=== PATIENT | female | born 1990 | race American Indian/Alaskan Native ===

== ENCOUNTER 2016-11-14 16:30 | Emergency (ER) | payer OTHER ==
[2016-11-14] MEDS ORDERED: MOTRIN PO ONE ×2 (18:40)
--- NOTE | 2016-11-14 19:10 | XRay Report ---
FINAL REPORT EXAM: XR WRIST 3 LT HISTORY: pain TECHNIQUE: Left wrist 4 views PRIORS: None. FINDINGS: Carpal bones maintain normal alignment. No acute fracture is identified. The distal radius and ulna are intact. IMPRESSION: Negative wrist series
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
[2016-11-14 20:49] VITALS: BP 122/85
== END 2016-11-14 19:39 | disposition home or self-care (01) ==
LOC: ED 16:30
DX: M25.532 Pain in left wrist (principal); V49.49XA Driver injured in collision with other motor vehicles in traffic accident, initial encounter; W22.11XA Striking against or struck by driver side automobile airbag, initial encounter; Y93.89 Activity, other specified; Y99.9 Unspecified external cause status; Y92.410 Unspecified street and highway as the place of occurrence of the external cause